=== PATIENT | male | born 1980 | race Hispanic/Latino ===

== ENCOUNTER 2024-05-04 10:37 | Emergency (ER) | payer MEDICARE ==
[~2024-05-04] VITALS: Ht 180.3 cm; Wt 120.7 kg
[2024-05-04 11:17] LABS: BASOPHILS # (AUTO) 0.03 K/uL (0.00-0.20); BASOPHILS % (AUTO) 0.5 % (0.0-5.0); EOSINOPHILS # (AUTO) 0.04 K/uL (0.00-0.70); EOSINOPHILS % (AUTO) 0.7 % (0.0-8.0); HEMATOCRIT 49.1 % (42-54); IMMATURE GRANULOCYTE ABSOLUTE 0.02 K/uL (0-1); LYMPHOCYTES # (AUTO) 2.3 K/uL (1.0-4.8); LYMPHOCYTES % (AUTO) 40.6 % (21.0-51.0); MEAN CORPUSCULAR HEMOGLOBIN 30.3 pg (27.0-33.0); MEAN CORPUSCULAR HGB CONC 33.4 g/dL (32.0-36.0); MEAN CORPUSCULAR VOLUME 90.6 fL (79-99); MONOCYTES # (AUTO) 0.3 K/uL (0.1-1.0); MONOCYTES % (AUTO) 4.8 % (3.0-13.0); PLATELET COUNT (AUTO) 216 K/uL (130-400); RED BLOOD CELL COUNT(AUTO) 5.42 MIL/uL (4.50-6.20); RED CELL DISTRIBUTION WIDTH 13.8 % (11.0-15.5); WHITE BLOOD COUNT (AUTO) 5.7 K/uL (4.8-10.8)
[2024-05-04 12:50] LABS: APPEARANCE,URINE CLOUDY (CLEAR); BILIRUBIN,URINE SMALL mg/dL (NEGATIVE); COLOR,URINE YELLOW (YELLOW); GLUCOSE, URINE (UA) NEGATIVE (NEGATIVE); KETONES,URINE NEGATIVE (NEGATIVE); LEUKOCYTE ESTERASE ,URINE MODERATE Leu/uL (NEGATIVE); NITRATE,URINE POSITIVE (NEGATIVE); OCCULT BLOOD,URINE NEGATIVE (NEGATIVE); PROTEIN,URINE TRACE mg/dL (NEGATIVE)
[2024-05-04 13:01] LABS: BACTERIA,URINE Many /HPF (None Seen); RBC,URINE 0-1 /HPF (0-1)
[2024-05-04 13:02] LABS: SQUAMOUS EPITHELIAL CELL,UR Rare /HPF (0-2)
[2024-05-04] MEDS: 0.9%NACL 1000ML 1,000 ML IV ONE (14:58)
[2024-05-04] MEDS: CEFTRIAXONE 2GM VIAL IVPB ONE (14:58)
[2024-05-04] MEDS: KETOROLAC 15MG/ML VIAL (15MG/ML) IM ONE (14:58)
[2024-05-04 17:19] VITALS: BP 122/73; PULSE 70; RESP 16; O2SAT 98
[2024-05-04] MEDS ORDERED: LEVO750T39 PO (19:08)
== END 2024-05-04 17:22 | disposition home or self-care (01) ==
LOC: EDH 10:37
DX: N39.0 Urinary tract infection, site not specified (principal); Z90.49 Acquired absence of other specified parts of digestive tract; Z98.890 Other specified postprocedural states
CPT/HCPCS: 99285; 74176; 96374; 80048; 85025; 87086 ×2; 87186; 81001; 36415; 96372; J7030; J0696; J1885

== ENCOUNTER 2024-08-18 18:43 | Emergency (ER) | payer MEDICARE, OTHER ==
[~2024-08-18] VITALS: Ht 180.3 cm; Wt 115.7 kg
[~2024-08-18 18:43] MED LIST: LEVO750T40 PO
[2024-08-18 20:12] LABS: COVID19 (SARS ANTIGEN RAPID) PRESUMPTIVE NEGATIVE (NEGATIVE); INFLUENZA TYPE A Negative For Type A (NEGATIVE); INFLUENZA TYPE B Negative For Type B (NEGATIVE)
--- NOTE | 2024-08-18 20:17 | ERN ---
General Chief Complaint: Fever Stated Complaint: FEVER Time Seen by MD: 19:05 Source: patient, family History of Present Illness Initial Comments Patient is a 44-year-old male coming in to be evaluated for fever and chills. Patient states that the fever chills began yesterday has been progressively getting worse. Patient also states that he checked his temperature at home he was 100.3 and took some ibuprofen shortly after that he rechecked his blood pressure and it was 101. 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 HEAD/FACE: No signs of trauma. EENT: No eye pain, no blurred vision, no tearing, no double vision, no ear pain, no ear discharge, no nose pain, no nasal congestion, no throat pain, no throat swelling, no mouth pain. RESPIRATORY: No cough, no orthopnea, no SOB, no stridor, no wheezing. CARDIOVASCULAR: No chest pain, no edema, no palpitations, no syncope. GASTROINTESTINAL/ABDOMINAL: No abdominal pain, no constipation, no diarrhea, no nausea, no vomiting. GENITOURINARY: No abnormal discharge, no dysuria, no frequent urination, no hematuria. No complaints of pain in the genitals. MUSCULOSKELETAL: No back pain, no gout, no joint pain, no joint swelling, no muscle pain, no muscle stiffness, no neck pain. INTEGUMENTARY: No change in color, no change in hair/nails, no dryness, no lesion, no lumps, no rash. NEUROLOGICAL/PSYCH: No anxiety, not depressed, no emotional problem, no headache, no numbness, no pre-existing deficit, no history of seizures, no tremors, no weakness. HEMATOLOGIC/LYMPHATIC: Not anemic, no history of blood clots, no apparent bleeding, no bruising, glands not swollen. All Systems Negative, Except as Noted. Physical Exam Physical Exam Dictation VITAL SIGNS: Reviewed. GENERAL APPEARANCE: Alert, oriented x3, no acute distress, obese. HEAD AND FACE: Non-traumatic. EYES: PERRL, pink conjunctivas, eyelid no trauma, anterior chamber clear. EARS: Pinnas intact and no signs of trauma or erythema. Ear canals clear and no discharge. TMs no erythema. NOSE: No discharge, no bleeding. OROPHARYNX: Mouth normal, teeth no caries, tongue pink. Pharynx clear, erythema . Tonsils exudates, no abscesses noted. Mucous membrane moist. NECK: Supple, non-tender, no thyromegaly, no masses, no JVD, no bruits. BREAST: Deferred. CHEST: No tenderness, no crepitus, no paradoxical movement, no retractions. LUNGS: Clear, well-ventilated, symmetric, no rales, no wheezing, no rhonchi, no stridor, good breath sounds bilaterally. HEART: Regular rate, regular rhythm, no murmur, no gallops. VASCULAR: No peripheral edema. ABDOMEN: Soft, positive bowel sounds, nondistended, no guarding, nontender, no rebound, no masses no hepatomegaly, no splenomegaly, no Alejandro's sign, no hernias. RECTAL: Deferred. GENITAL: Deferred. NEUROLOGICAL: Normal speech, gross motor function intact, gross sensory function intact. MUSCULOSKELETAL: Neck nontender, full range of motion, back nontender, full range of motion. EXTREMITIES: Nontender, full range of motion. SKIN: Color pink, dry, no turgor, no rash, no lacerations, no abrasions, no contusions. LYMPHATICS: Deferred. Results Laboratory and Microbiology Lab and Micro Result Laboratory Tests Test 08/18/24 18:32 08/18/24 20:22 Influenza Type A Antigen Negative For Type A Influenza Type B Antigen Negative For Type B SARS-CoV-2 Antigen (Rapid) PRESUMPTIVE NEGATIVE White Blood Count 6.1 K/uL (4.8-10.8) Red Blood Count 5.49 MIL/uL (4.50-6.20) Hemoglobin 16.5 g/dL (14.0-18.0) Hematocrit 49.7 % (42-54) Mean Corpuscular Volume 90.5 fL (79-99) Mean Corpuscular Hemoglobin 30.1 pg (27.0-33.0) Mean Corpuscular Hemoglobin Concent 33.2 g/dL (32.0-36.0) Red Cell Distribution Width 13.4 % (11.0-15.5) Platelet Count 192 K/uL (130-400) Mean Platelet Volume 10.0 fL (7.5-10.5) Immature Granulocyte % (Auto) 0.3 % (0-1) Neutrophils (%) (Auto) 76.5 % (40.0-77.0) Lymphocytes (%) (Auto) 16.3 % (21.0-51.0) L Monocytes (%) (Auto) 4.0 % (3.0-13.0) Eosinophils (%) (Auto) 2.6 % (0.0-8.0) Basophils (%) (Auto) 0.3 % (0.0-5.0) Neutrophils # (Auto) 4.6 K/uL (1.8-7.7) Lymphocytes # (Auto) 1.0 K/uL (1.0-4.8) Monocytes # (Auto) 0.2 K/uL (0.1-1.0) Eosinophils # (Auto) 0.16 K/uL (0.00-0.70) Basophils # (Auto) 0.02 K/uL (0.00-0.20) Absolute Immature Granulocyte (auto 0.02 K/uL (0-1) Nucleated Red Blood Cells 0.0 % (0.0-0.19) Sodium Level 134 mmol/L (136-145) L Potassium Level 3.7 mmol/L (3.5-5.1) Chloride Level 101 mmol/L (101-111) Carbon Dioxide Level 26 mmol/L (21-32) Blood Urea Nitrogen 11 mg/dL (7-18) Creatinine 1.4 mg/dL (0.5-1.3) H Glomerular Filtration Rate Calc 63 mL/min (>90) Random Glucose 154 mg/dL (70-105) H Total Calcium 8.5 mg/dL (8.5-10.1) Labs Reviewed?: Yes MDM MDM: Differential diagnosis: Pharyngitis, URI, sinusitis This is a 44-year-old male, new to evaluated for URI symptoms. Patient states he has been having a fever all day today. Has been taking Tylenol and Motrin but have not really worked with the physical exam there is oropharyngeal erythema with some white exudate. Patient was discharged with a diagnosis of strep pharyngitis. ED Course Orders Procedure Category Date Status Time Influenza Type A & B, LAB 08/18/24 Complete Rapid 18:54 Covid19 (Sars Antigen LAB 08/18/24 Complete Rapid) 18:54 Cbc With Differential LAB 08/18/24 Complete 20:03 Basic Metabolic Panel LAB 08/18/24 Complete 20:03 0.9%Nacl 1000ml (Ns PHA 08/18/24 Complete 1000ml) 20:30 Acetaminophen 500mg PHA 08/18/24 Complete Tab (Tylenol 500mg T 20:30 Ketorolac PHA 08/18/24 Complete Tromethamine 30mg/Ml 20:30 Current Medications Medications (Trade) Dose Ordered Sig/Charis Route PRN Reason Start Time Stop Time Status Last Admin Dose Admin Acetaminophen (TYLenol 500MG TAB) 1,000 mg ONCE ONCE PO 08/18/24 20:30 08/18/24 20:31 DC Ketorolac Tromethamine (toRADol) 30 mg ONCE ONCE IM 08/18/24 20:30 08/18/24 20:31 DC Sodium Chloride 1,000 ml @ 0 mls/hr ONCE ONCE IV 08/18/24 20:30 08/18/24 20:31 DC Vital Signs Date Time Temp Pulse Resp B/P (MAP) Pulse Ox O2 Delivery O2 Flow Rate FiO2 08/18/24 18:48 102.7 118 16 110/71 95 Room Air 0 DX & DISP Disposition: Discharge Departure Impression: Primary Impression: Strep pharyngitis Condition: Stable Scripts Fluticasone Propionate (Flonase Nasal [place]) 50 Mcg/Actuation [place] 2 SPRAY NS DAILY, #16 GM 0 Refills Prov: KARLEY BURRIS MD 08/18/24 Amoxicillin (Amoxicillin) 500 Mg Capsule 1 CAP PO TID for 10 Days, #30 CAP 0 Refills Prov: KARLEY BURRIS MD 08/18/24 Additional Instructions: Discharge home. Rest. Follow up with primary care in 24 hours. Return to the ER for any acute change. Patient was also advised to follow-up with primary care physician in 1 to 2 days for continued monitoring. All instructions were given to laymans term and patient agreeable to discharge and proper follow-up. Referrals: SELF,REFERRAL (PCP) NAYANA HORTON MD Time of Disposition: 20:58 KARLEY BURRIS MD Aug 18, 2024 20:17
[2024-08-18 20:31] LABS: BASOPHILS # (AUTO) 0.02 K/uL (0.00-0.20); BASOPHILS % (AUTO) 0.3 % (0.0-5.0); EOSINOPHILS # (AUTO) 0.16 K/uL (0.00-0.70); EOSINOPHILS % (AUTO) 2.6 % (0.0-8.0); HEMATOCRIT 49.7 % (42-54); IMMATURE GRANULOCYTE ABSOLUTE 0.02 K/uL (0-1); LYMPHOCYTES % (AUTO) 16.3 % (21.0-51.0); MEAN CORPUSCULAR HEMOGLOBIN 30.1 pg (27.0-33.0); MEAN CORPUSCULAR HGB CONC 33.2 g/dL (32.0-36.0); MEAN CORPUSCULAR VOLUME 90.5 fL (79-99); MONOCYTES # (AUTO) 0.2 K/uL (0.1-1.0); NEUTROPHILS # (AUTO) 4.6 K/uL (1.8-7.7); NEUTROPHILS % (AUTO) 76.5 % (40.0-77.0); PLATELET COUNT (AUTO) 192 K/uL (130-400); RED BLOOD CELL COUNT(AUTO) 5.49 MIL/uL (4.50-6.20); RED CELL DISTRIBUTION WIDTH 13.4 % (11.0-15.5); WHITE BLOOD COUNT (AUTO) 6.1 K/uL (4.8-10.8)
[2024-08-18 20:45] LABS: CREATININE 1.4 mg/dL (0.5-1.3); POTASSIUM 3.7 mmol/L (3.5-5.1)
[2024-08-18] MEDS ORDERED: AMOX500C2 PO (20:58)
[2024-08-18] MEDS ORDERED: FLUT16H NS (20:58)
[2024-08-18] MEDS: 0.9%NACL 1000ML 1,000 ML IV ONE (21:12)
[2024-08-18] MEDS: acetaMINOPHEN 500 MG TABLET PO ONE (21:12)
[2024-08-18] MEDS: ketOROlac 30MG VIAL (30MG/ML) IM ONE (21:12)
--- NOTE | 2024-08-18 21:27 | NUR ---
DISCHARGE PENDING COMPLETION OF IV FLUIDS
[2024-08-18] MEDS ORDERED: AMOX1TAB16 PO (22:10)
[2024-08-18 22:30] VITALS: BP 114/72; PULSE 98; RESP 20; TEMP 100.2; O2SAT 97
== END 2024-08-18 22:48 | disposition home or self-care (01) ==
LOC: EDH 18:43
DX: J02.0 Streptococcal pharyngitis (principal); Z20.822 Contact with and (suspected) exposure to COVID-19; Z90.49 Acquired absence of other specified parts of digestive tract
CPT/HCPCS: 99283; 96360; 96361; 87426; 80048; 85025; 87804 ×2; 36415; 96372; J7030; J1885

== ENCOUNTER 2025-06-30 06:12 | Day surgery (SDC) | payer OTHER ==
[2025-06-30] VITALS (11 sets, daily range): BP systolic 99–119; BP diastolic 59–80; PULSE 74–88; RESP 15–18; TEMP 97.5–98.8
[~2025-06-30] VITALS: Ht 180.3 cm; Wt 127.0 kg
[~2025-06-30 06:12] MED LIST changes: +AMOX1TAB16 PO; +AMOX500C2 PO; +FLUT16H NS; -LEVO750T40 PO; +LEVO750T90 PO
[2025-06-30] MEDS: 0.9%NACL 1000ML 1,000 ML IV ONE (06:41)
[2025-06-30] MEDS ORDERED: SOLI10TA PO (06:43)
[2025-06-30] MEDS ORDERED: GABA300C PO (06:43)
[2025-06-30] MEDS ORDERED: BACL10TA PO (06:43)
[2025-06-30] MEDS ORDERED: TADA10TA PO (06:43)
[2025-06-30] MEDS ORDERED: TAMS-55 PO (06:43)
[2025-06-30] MEDS ORDERED: PANT20TA18 PO (06:43)
[2025-06-30] MEDS ORDERED: LIDOCAINE HCL 1% 20 ML VIAL ONE (07:19)
== END 2025-06-30 08:55 | disposition home or self-care (01) ==
LOC: ENDO 06:12 → DAH 06:12 → ENDO 08:55
PROVIDERS: ATTEND Internal Medicine Gastroenterology
DX: R19.5 Other fecal abnormalities (principal); K29.50 Unspecified chronic gastritis without bleeding; K21.9 Gastro-esophageal reflux disease without esophagitis; K64.8 Other hemorrhoids; Z90.49 Acquired absence of other specified parts of digestive tract; Z98.890 Other specified postprocedural states
CPT/HCPCS: 43239; 45380; J7030; J2704; A4620; A4215; A4223; A7002; A4222; A4221; A4663; A4606; J3490